=== PATIENT | male | born 1950 | race Caucasian/White ===

== ENCOUNTER → 2017-01-10 | Outpatient (CLI) | payer MEDICARE, BC ==
[~2017-01-10] MED LIST: ADVIL200 M2 PO; AMLODIPINE-BENA1 CAP PO; ASPIRIN PO; ASPIRIN81 M2 PO; ASPIRINEC PO; ATORVASTATIN CA80 MG PO; CIPRO PO; CRESTOR PO; DEPO-TESTOT200 MG/ML IM; FLOMAX0.4 M1 PO; LEXAPRO PO; LIPITOR PO; LOTREL 2.5/10 M1 CAP; METHADONE PO; METHADOSE5 MG PO; METOPROLOL SUCC50 MG PO; MOBIC PO; NEURONTIN300 MG PO; NITROGLYCERIN0.4 MG SL; PERCOCET10 PO; PERCOLONE5 MG; ROXICODONE5 MG PO; SERTRALINE HCL50 M1 PO; TESTOSTERO200 MG/1 M IM; VIT E PO; WALGREENS PHARMACY; ZOCOR PO; ZOCOR20 MG PO; [UNRECOGNIZED DRUG - OTHER]
--- NOTE | ~2017-01-10 | CT4 ---
[facility] A Service of [facility] & [facility] RADIOLOGY TEXT RESULTS PATIENT: PORTILLO MENCHACA LOCATION: [facility] : 52 UNIT #: [id number] AGE: [address]: Nazario London MD SEX: M ORDER DR: [id number] [facility] [address]. [place], [place] [address] [id number] O MR#: [id number] [facility] #: [id number] NAME: PORTILLO MENCHACA. : 1950 SEX: M STUDY DATE/TIME: 01/10/2017 15:06 UNIT: [facility] ROOM: STUDY DESCRIPTION: CT Abd and Pelv Wo Cont Attending Physician: Nazario London M.D. Referring Physician: Nazario London M.D. Ordering Physician: Nazario London M.D. Primary Care Physician: Gonzalo Herrera M.D. MEDICAL IMAGING REPORT This report is preliminary unless electronic signature is present EXAM CT of the abdomen and pelvis without contrast. INDICATIONS Left ureteral stone identified on a prior CT from March 05, 2016. Patient does have a history of multiple bilateral nonobstructing stones. TECHNIQUE Axial CT images were obtained from dome of the diaphragm through the symphysis pubis. No oral or intravenous contrast material was administered. This CT exam was performed with one or more of the following radiation dose reduction techniques: automatic exposure control, adjustment of mA and/or kV according to patient size, and iterative reconstruction. FINDINGS Images through the lung bases are clear. This patient is again noted to have a stone within the distal left ureter. It measures about 7 mm in size, which is somewhat similar when compared to the prior examination, although, there is no obstruction associated with it on today's examination. Bilateral nonobstructing renal stones are again noted, single largest stone on the right measures up to 1.1 cm, and the single largest on the left measures about 4 mm. Bilateral renal cysts are present. No stones are seen within the urinary bladder and is relatively decompressed. Prostate gland appears within normal limits. Liver and gallbladder appear unremarkable as are the stomach, proximal small bowel, adrenal glands, spleen and pancreas. No free fluid or adenopathy is seen within the abdomen. There is some atherosclerotic involvement of the abdominal aorta. There is colonic diverticulosis without evidence of diverticulitis. No free fluid or adenopathy is seen within the pelvis. This patient has some sclerotic foci identified within the pelvis. The single largest is seen within the sacrum and measures up to 9 mm in size. [facility] A Service of [facility] RADIOLOGY TEXT RESULTS PATIENT: PORTILLO MENCHACA LOCATION: [facility] : 52 UNIT #: [id number] AGE: [address]: Nazario London MD SEX: M ORDER DR: It is stable when compared to February 2016, but has increased in size when compared to November of 2010. There are additional scattered sclerotic foci seen within the pelvis which were also not present on the November of 2010 exam. While these still could reflect a benign finding, the possibly of sclerotic metastases certainly cannot be excluded, and correlation with PSA is recommended. IMPRESSION 1. Patient is again noted to have a 7 mm stone within the left ureter. This was also present on a prior study but is no longer associated with any hydronephrosis. 2. Bilateral nonobstructing stones are seen within both kidneys. 3. Bilateral renal cysts. 4. This patient has sclerotic foci seen throughout the pelvis, some of which were not present in 2010, and some of which have increased when compared to that examination. This still could reflect a benign finding, but the possibility of osseous metastatic disease cannot be excluded. Correlation with PSA is recommended. Dictated by... Idalmis Cornell M.D. THIS IS AN ELECTRONICALLY VERIFIED REPORT Idalmis Cornell M.D. at 01/12/2017 7:19 AM RETA/chapin TD: 01/11/2017 17:17 JOB #: [id number] MEDICAL IMAGING REPORT Page 1 of 1 COPY
== END | disposition home or self-care (01) ==
LOC: CCAT 14:16
DX: N20.2 Calculus of kidney with calculus of ureter (principal); Q61.02 Congenital multiple renal cysts
CPT/HCPCS: 74176

== ENCOUNTER → 2017-02-02 | Day surgery (SDC) | payer MEDICARE, BC ==
--- NOTE | ~2017-02-02 | EKG ---
PATIENT: PORTILLO MENCHACA UNIT #: [id number] Ventricular Rate: 51 BPM Atrial Rate: 51 BPM P-R Interval: 174 ms QRS Duration: 92 ms Q-T Interval: 436 ms QTC Calculation(Bezet): 401 ms P [place]: 24 degrees Calculated R [place]: 22 degrees Calculated T [place]: 46 degrees Diagnosis Line: Sinus bradycardia Diagnosis Line: Otherwise normal ECG Diagnosis Line: No previous ECGs available Diagnosis Line: Confirmed by LENCHO SAMANO MD ([id number]) on 02/04/2017 Diagnosis Line: 2:46:38 PM INTERPRETING MD: SELWYN ROJAS
--- NOTE | ~2017-02-02 | OR ---
Unit #: [id number] #: [id number] Patient: PORTILLO MENCHACA [id number] [address] [place], [place] [address] [id number] O MR#: [id number] NAME: PORTILLO MENCHACA ROOM: Date of Procedure: 02/02/2017 Admission Date: 02/02/2017 Surgeon: Nazario London M.D. : 1950 Attending Physician: Nazario London M.D. Primary Care Physician: Gonzalo Herrera M.D. OPERATIVE REPORT PREOPERATIVE DIAGNOSES Left ureteral and renal calculi, history of ureteral stricture. POSTOPERATIVE DIAGNOSES Left ureteral and renal calculi, history of ureteral stricture, with left ureteral stricture. PROCEDURES PERFORMED Cystoscopy, left rigid and flexible ureteroscopy, laser of ureteral stone, basket extraction of multiple renal stones, placement of internal double-J stent 28 x 5. ANESTHESIA General with local supplementation. INDICATIONS FOR PROCEDURE This 66-year-old man with chronic pain issues and chronic bilateral stones, has a 7 mm stone stuck in the mid left ureter in the area of a known stricture and a 4 mm left intrarenal stone as well as smaller stones by CT. He presents for left ureteroscopy, understanding that he will require a stent after the procedure. DESCRIPTION OF PROCEDURE The patient was given satisfactory general anesthesia and Levaquin. He was positioned in dorsal lithotomy. The genitalia prepped and draped. The 21-[place]er rigid cystoscope was introduced noting normal urethra, mild elevation of bladder neck from BPH, and a normal bladder with symmetric orifices, although there was a synechium at the distal left ureteral orifice which prompted a retrograde to clarify no duplication. I squirted some contrast up the ureter showing a normal delicate system dilation at the level of the stone and was able to then see guidewire in the more proximal portion after passing a Sensor guidewire up to the kidney. Lubriglides 8 and 10 were used to dilate over the guidewire. The rigid ureteroscope was then placed over a second guidewire and did not advance easily, so I dilated to 10-[place]er over the second wire, then advanced it up to where the stone was deeply impacted in a chronically inflamed segment at the pelvic brim level. The angle was adequate to treat the stone with a 200 nanometer laser fiber at settings of 10 and 1.0. This broken into numerous fragments that were irrigated out distally as I was able to advance the scope through the stricture to treat the remainder of the stone. I could not treat all of it with the rigid scope and elected Unit #: [id number] #: [id number] Patient: PORTILLO MENCHACA to place a flexible ureteroscope. I irrigated out fragments distally with the rigid scope before switching over, then placed the flexible scope over a second guidewire through the area of stricture. This allowed me to manipulate and back flush fragments out of this area for subsequent extraction. Removing the scope, I advanced a 13 x 11 access sheath over a solitary guidewire to beyond the stricture and through it, I used the flexible scope again to basket numerous fragments out of the upper ureter, then several fragments out of the kidney including what I believe are 2 pieces together making the perceived 4 mm stone. No laser was required in the kidney, but an extensive effort at basketing several stones resulted in clearance of any significant stones from the kidney. Final inspection of the stricture indicated he would benefit from prolonged stenting. A 28 x 5 double-J stent was deployed internally in good position. The bladder was drained. The cystoscope removed and a Uro-jet applied to complete the procedure. We will discuss with him retaining the stent for several weeks and possibly coordinating its removal with right ESWL and stent placement should he choose to treat his chronic stone on the other side at this time. Dictated by... Miriam Velásquez/mazin TD: 02/03/2017 07:15 JOB #: [id number] CC: Gonzalo Herrera M.D. OPERATIVE REPORT Page 1 of 1 X Nazario London MD PROCEDURE OPERATIVE NOTE
== END | disposition home or self-care (01) ==
LOC: CSUR 06:50
PROVIDERS: Urology
DX: N20.2 Calculus of kidney with calculus of ureter (principal); N40.0 Benign prostatic hyperplasia without lower urinary tract symptoms; K21.9 Gastro-esophageal reflux disease without esophagitis; I25.10 Atherosclerotic heart disease of native coronary artery without angina pectoris; I10 Essential (primary) hypertension; E78.5 Hyperlipidemia, unspecified; Z88.1 Allergy status to other antibiotic agents; Z79.82 Long term (current) use of aspirin; Z79.891 Long term (current) use of opiate analgesic; Z79.899 Other long term (current) drug therapy; Z98.890 Other specified postprocedural states
CPT/HCPCS: 82365; 88300; 93005; C1758; C2617; J1885; J1956; J2250; J2405; J3010

== ENCOUNTER 2017-02-17 05:54 | Emergency (ER) | payer MEDICARE, BC ==
[~2017-02-17] VITALS: Ht 182.9 cm; Wt 95.2 kg
--- NOTE | ~2017-02-17 | CR7 ---
[facility] A Service of [facility] RADIOLOGY TEXT RESULTS PATIENT: PORTILLO MENCHACA LOCATION: [facility] : 51 UNIT #: [id number] AGE: [address]: Nazario Aleman MD SEX: M ORDER DR: [id number] [facility] [address] [place], [place] [address] [id number] E MR#: [id number] Acc #: [id number] NAME: PORTILLO MENCHACA. : 1950 SEX: M STUDY DATE/TIME: 02/17/2017 6:40 UNIT: [facility] ROOM: STUDY DESCRIPTION: CR Abdomen Single AP View Attending Physician: Nazario Aleman M.D. Ordering Physician: Nazario Aleman M.D. Primary Care Physician: Gonzalo Herrera M.D. MEDICAL IMAGING REPORT This report is preliminary unless electronic signature is present EXAM Abdomen 02/17/2017 INDICATION Right-sided flank pain for a few days. History of stones and the patient had lithotripsy yesterday. COMPARISON 06/03/2014. There is also a CT scan of the abdomen and pelvis 01/10/2007. FINDINGS A supine view was obtained. There are postop changes of the lumbar spine at L4 and L5. There are phleboliths in the pelvis. The CT scan 01/10/2017 showed a right renal stone and left renal stone and a left ureteral stone but it is difficult to see those on this examination. The bowel gas pattern is normal. IMPRESSION 1. The bowel gas pattern is normal. 2. The single bilateral renal stones and the left ureteral stone that were seen on the CT scan 01/10/2017 are not appreciated on this plain film. Dictated by... Thien Chavez M.D. THIS IS AN ELECTRONICALLY VERIFIED REPORT Thien Chavez M.D. at 02/19/2017 6:15 AM SONDRA/faby TD: 02/18/2017 09:24 JOB #: [id number] [facility] A Service of [facility] RADIOLOGY TEXT RESULTS PATIENT: PORTILLO MENCHACA LOCATION: [facility] #: [id number] : 52 UNIT #: [id number] AGE: [address]: Nazario Almean MD SEX: M ORDER DR: MEDICAL IMAGING REPORT Page 1 of 1 COPY
[~2017-02-17 05:54] MED LIST changes: -ADVIL200 M2 PO; -CIPRO PO; -FLOMAX0.4 M1 PO; -ROXICODONE5 MG PO
[2017-02-17 07:05] LABS: BASOPHIL# 0.1 X10e3 (0-0.3); BASOPHIL% 0.8 % (0-2.5); EOSINOPHIL# 0.1 X10e3 (0-0.7); EOSINOPHIL% 0.8 % (0.0-7.0); HEMATOCRIT 43.5 % (38.0-50.0); HEMOGLOBIN 14.1 gm/dL (13.0-16.0); LYMPHOCYTE# 2.2 X10e3 (1.0-3.5); LYMPHOCYTE% 14.8 % (17.0-45.0); MEAN CELL VOLUME 85.5 FL (83-96); MEAN CORPUSCULAR HEMOGLOBIN 27.6 PG (28-34); MEAN CORPUSCULAR HGB CONC 32.3 g/dL (30-36); MEAN PLATELET VOLUME 9.5 FL (6.5-11.5); MONOCYTE# 1.2 X10e3 (0-1.0); MONOCYTE% 8.2 % (3.0-12.0); NEUTROPHIL% 75.4 % (40-75); PLATELET COUNT 154 X10e3 (140-420); RED BLOOD COUNT 5.09 X10e (3.90-5.60); RED CELL DISTRIBUTION WIDTH 13.6 % (11.0-15.5); WHITE BLOOD COUNT 14.6 X10e3 (4.0-10.5)
[2017-02-17 07:10] LABS: DIFF IND NO
[2017-02-17 07:27] LABS: BUN/CREATININE RATIO 12.66; CALCIUM SERUM 9.1 mg/dL (8.4-10.2); CREATININE SERUM 1.5 mg/dL (0.6-1.4); GLOM FILT RATE Estimated 48.2 mL/min (>60)
[2017-02-17 08:37] LABS: URINE SOURCE CLEAN CATCH
[2017-02-17 08:44] LABS: URINE APPEARANCE CLOUDY; URINE BILIRUBIN NEG (NEG); URINE BLOOD 3+ (NEG); URINE COLOR YELLOW; URINE GLUCOSE NEG (NEG); URINE KETONE NEG (NEG); URINE LEUKOCYTE ESTERASE 1+ (NEG); URINE NITRATE NEG (NEG); URINE PROTEIN 1+ (NEG); URINE SPECIFIC GRAVITY 1.012 (1.003-1.035); URINE UROBILINOGEN 0.2 MG/DL (NEG)
[2017-02-17 08:46] LABS: CULTURE INDICATED? YES; URBCS1 AUWI INNUM /[HPF] (0-2); URINE BACTERIA AUWI NEG (NEGATIVE); URINE SQUAMOUS EPITHELIAL CELL NONE SEEN /[HPF]
== END 2017-02-17 10:55 | disposition home or self-care (01) ==
LOC: CED 05:54
PROVIDERS: Emergency Medicine
DX: N20.1 Calculus of ureter (principal); Z79.82 Long term (current) use of aspirin; Z79.899 Other long term (current) drug therapy
CPT/HCPCS: 36415; 74000; 80048; 81003; 85025; 87086; 96361; 96374; 96375; 96376; 99284; J1170; J1885; J2550

== ENCOUNTER 2017-02-21 18:36 | Inpatient (IN) | payer MEDICARE, BC ==
[~2017-02-21] VITALS: Ht 182.9 cm; Wt 95.2 kg
--- NOTE | ~2017-02-21 | OR ---
Unit #: [id number] #: [id number] Patient: PORTILLO MENCHACA [id number] [address] [place], [place] [address] [id number] Jackie MR#: [id number] NAME: PORTILLO MENCHACA ROOM: 240 Date of Procedure: 02/22/2017 Admission Date: 02/21/2017 Surgeon: Nazario London M.D. : 1950 Attending Physician: Marii Chirinos M.D. Primary Care Physician: Gonzalo Herrera M.D. PROCEDURE OPERATIVE NOTE PREOPERATIVE DIAGNOSIS Right ureteral steinstrasse. POSTOPERATIVE DIAGNOSIS Same. PROCEDURE Cystoscopy, right rigid and flexible ureteroscopy with extensive basket extraction of numerous stone fragments, ureter and kidney. SURGEON Dr. Nazario London ANESTHESIA General. INDICATIONS This 66-year-old man has had continued pain since his lithotripsy one week ago and has been passing small stone fragments. With a negative KUB, he was observed further but CT scan on admission through the emergency department shows a massive stone 6 x 18 mm in the distal right ureter as well as some residual renal stones. This appears to be overlying the edge of the bony pelvis thus escaping previous detection. He elects definitive treatment as pain control has been difficult, especially given his baseline chronic pain with pain management. PROCEDURE The patient was on antibiotics and given satisfactory general anesthesia. In the dorsal lithotomy position, routine prep and drape were performed. The 21 Hungarian rigid cystoscope was introduced with the 30 degree lens and video. The left ureteral orifice still has moderate dilation and mild periorificial submucosal erythema from the previous stent on that side. The right ureteral orifice appeared normal. A Sensor guidewire was passed with the aide of a Pollack catheter through the massive stone. The ureter appeared possibly large enough to perform ureteroscopy without dilation and I was able to pass the ureteroscope. There was some red, heaped up mucosa in the very distal ureteral tunnel associated with the lead stone fragment which was very sharp and irregular. I was able to push the stone past this, however, and with several passages was able to simply irrigate out a number of fragments. Several required careful positioning and basket extraction but laser and dilation were not needed. Once I cleared the distal ureter, I placed an 11 x 13 short access sheath effortlessly Unit #: [id number] #: [id number] Patient: PORTILLO MENCHACA along the solitary guidewire and performed flexible ureteroscopy. As expected, I found 2 stones, each of which was easily basket extracted leaving no significant residual stone in the kidney. Final inspection allowed me to rule against placing a stent and thus, after washing fragments out with the cystoscope, the bladder was drained, the cystoscope removed and a Uro-jet applied to complete the procedure. Patient will be observed overnight for further improvement in his renal indices and if pain controlled, discharged with followup as scheduled. Dictated by... Miriam Velásquez/najma TD: 02/24/2017 14:05 JOB #: [id number] CC: Deja Rios M.D. PROCEDURE OPERATIVE NOTE Page 1 of 1 X Nazario London MD X PROCEDURE OPERATIVE NOTE
--- NOTE | ~2017-02-21 | CT4 ---
[facility] A Service of [facility] & [facility] RADIOLOGY TEXT RESULTS PATIENT: PORTILLO MENCHACA LOCATION: [facility] : 51 UNIT #: [id number] AGE: [address]: Marii Chirinos MD SEX: M ORDER DR: [id number] [facility] [address] [place], [place] [address] [id number] I MR#: [id number] Acc #: [id number] NAME: PORTILLO MENCHACA. : 1950 SEX: M STUDY DATE/TIME: 02/21/2017 20:02 UNIT: [facility] ROOM: [id number] STUDY DESCRIPTION: CT Abd and Pelv Wo Cont Attending Physician: Deja Rios M.D. Ordering Physician: Radha Grewal M.D. Primary Care Physician: Gonzalo Herrera M.D. MEDICAL IMAGING REPORT This report is preliminary unless electronic signature is present EXAM CT abdomen and pelvis without contrast DATE: 02/21/2017 at 20:02 HISTORY 66-year-old male with left flank pain, lower back pain status post lithotripsy procedure on 02/16/2017. COMPARISON CT abdomen and pelvis without contrast 01/10/2017. PROCEDURE 3 mL noncontrast axial images through the abdomen and pelvis. Enteric contrast was not administered. Sagittal and coronal reformatted images were obtained. This CT exam was performed with one or more of the following radiation dose reduction techniques: automatic exposure control, adjustment of mA and/or kV according to patient size, and iterative reconstruction. FINDINGS ABDOMEN FINDINGS: A stone or multiple stones are seen within the distal right ureter extending into the [id number] junction, extending nearly 1.8 cm in length, with maximal thickness of 6 mm. It is a new finding since 01/10/2017. There is mild bilateral hydroureter. However, no left ureteral stone is seen. There are nonobstructing bilateral intrarenal calculi and mild bilateral hydronephrosis. Bilateral renal cysts are present, the largest located in the right kidney measuring nearly 8 cm. Left kidney appears mildly atrophic. [facility] A Service of [facility] & [facility] RADIOLOGY TEXT RESULTS PATIENT: PORTILLO MENCHACA LOCATION: [place] [address] : [birth year] UNIT #: [id number] AGE: [address]: Marii Chirinos MD SEX: M ORDER DR: Lung bases are free of consolidation. There is minimal linear scarring in the right base.. Moderate coronary artery calcifications are present. The liver, gallbladder, spleen, pancreas and adrenal glands are within normal limits. Appendix is normal. Bowel appears nonthickened and noninflamed. PELVIS FINDINGS: Urinary bladder and prostate gland appear within normal limits. Rectum is normal. Posterior spinal fusion changes are present at L4-5. No acute osseous abnormalities are identified. IMPRESSION 1. New stone or stone aggregates within the distal right ureter at the ureterovesical junction measuring 6 mm in thickness x 1.8 cm in length. 2. No left ureteral stone is seen. 3. Mild bilateral hydronephrosis and hydroureter. 4. Nonobstructing bilateral renal stones and bilateral renal cysts. 5. Normal appendix. 6. Posterior lumbar spine fusion. Dictated by... Jeanna Anaya M.D. THIS IS AN ELECTRONICALLY VERIFIED REPORT Jeanna Anaya M.D. at 02/22/2017 12:28 PM MELA/selina TD: 02/21/2017 23:11 JOB #: [id number] MEDICAL IMAGING REPORT Page 1 of 1 COPY
--- NOTE | ~2017-02-21 | DS ---
Unit #: [id number] #: [id number] Patient: PORTILLO MENCHACA [id number] [address] [address] [id number] MR#: [id number] NAME: PORTILLO MENCHACA ROOM: 47 Age: 66 Sex: M Admission Date: 02/21/2017 : 1950 Discharge Date: 02/25/2017 Attending Physician: Marii Chirinos M.D. Primary Care Physician: Gonzalo Herrera M.D. DISCHARGE SUMMARY ADDENDUM Please note patient is still having significant amount of pain this afternoon; however, he has been up ambulating and walking the harding. I am going to give him a single dose of Toradol in addition to prescribing him a few oxycodone 5 mg 1 to 2 tablets p.o. q.4 hours p.r.n. for pain and allow him to be discharged home. Number of oxycodone given 12. Dictated by... Marii Chirinos M.D. KATE/jose TD: 02/26/2017 15:55 JOB #: [id number] DISCHARGE SUMMARY Page 1 of 1 X Marii Chirinos MD X DISCHARGE SUMMARY
--- NOTE | ~2017-02-21 | CT4 ---
[facility] A Service of [facility] & [facility] RADIOLOGY TEXT RESULTS PATIENT: PORTILLO MENCHACA LOCATION: [place] [address]- : [birth year] UNIT #: [id number] AGE: [address]: Marii Chirinos MD SEX: M ORDER DR: [id number] [facility] [address]. [place], [place] [address] [id number] I MR#: [id number] Acc #: [id number] NAME: PORTILLO MENCHACA. : 1950 SEX: M STUDY DATE/TIME: 02/24/2017 12:50 UNIT: [facility] ROOM: [facility] STUDY DESCRIPTION: CT Abd and Pelv Wo Cont Attending Physician: Marii Chirinos M.D. Ordering Physician: Marii Chirinos M.D. Primary Care Physician: Gonzalo Herrera M.D. MEDICAL IMAGING REPORT This report is preliminary unless electronic signature is present EXAM CT scan of the abdomen and pelvis without contrast, 02/24/2017. HISTORY Right flank pain for 2 weeks. Passed a kidney stone and underwent lithotripsy 1 week ago. TECHNIQUE Spiral CT was performed through the abdomen and pelvis without oral or intravenous contrast administration using renal stone protocol. This CT exam was performed with one or more of the following radiation dose reduction techniques: automatic exposure control, adjustment of mA and/or kV according to patient size, and iterative reconstruction. FINDINGS There is mild right hydronephrosis and hydroureter but no obstructing renal or ureteral calculus is seen. Findings may reflect a recently passed stone, but no calculus is seen within the bladder. Clinical correlation is recommended. They are multiple nonobstructing renal stones bilaterally. The left kidney appears somewhat atrophic. Compared with 02/21/2017, the indeterminate low-density lesions on both kidneys are stable and they probably represent cysts although they are indeterminate due to the lack of intravenous contrast. The visualized liver, spleen, pancreas, gallbladder and biliary tree and adrenal glands are normal. PELVIS FINDINGS: There is colonic diverticulosis without evidence of diverticulitis. The gut is otherwise unremarkable. No adenopathy is seen and there is no free fluid in the abdomen or pelvis. There is gas within the bladder lumen probably reflecting recent instrumentation. Clinical correlation recommended. IMPRESSION 1. Mild right-sided hydronephrosis and hydroureter but no obstructing STS. [facility] A Service of [facility] & [facility] RADIOLOGY TEXT RESULTS PATIENT: PORTILLO MENCHACA LOCATION: [place] [address] : [birth year] UNIT #: [id number] AGE: [address]: Marii Chirinos MD SEX: M ORDER DR: renal or ureteral calculus is seen. Findings may reflect recently passed stone, but no calculus is identified within the bladder. Clinical correlation is recommended. 2. Multiple nonobstructing renal stones bilaterally. The left kidney is atrophic. 3. Stable low-density lesions on both kidneys compared with 02/21/2017, probably representing cysts. 4. Gas is seen within the bladder is well as the right renal collecting system probably reflecting recent instrumentation. 5. Diverticulosis. No evidence of diverticulitis. 6. Posterior lumbar spine fusion is incidentally noted. Dictated by... Yossi Valenzuela M.D. THIS IS AN ELECTRONICALLY VERIFIED REPORT Yossi Valenzuela M.D. at 02/25/2017 6:33 AM ROSEMARY/chapin TD: 02/24/2017 23:59 JOB #: [id number] MEDICAL IMAGING REPORT Page 1 of 1 COPY
--- NOTE | ~2017-02-21 | DS ---
Unit #: [id number] #: [id number] Patient: PROTILLO MENCHACA [id number] [address] [place], [place] [address] [id number] I MR#: [id number] NAME: PORTILLO MENCHACA. ROOM: 476 Age: 66 Sex: M Admission Date: 02/21/2017 : 1950 Discharge Date: 02/23/2017 Attending Physician: Marii Chirinos M.D. Primary Care Physician: Gonzalo Herrera M.D. DISCHARGE SUMMARY PRINCIPAL DIAGNOSES 1. Severe right renal colic secondary to right ureterovesical junction stones status post right rigid and flexible ureteroscopy with basket multiple stone fragments extracted. 2. Acute kidney injury, prerenal plus/minus obstructive. Discharge creatinine 1.5. 3. Chronic pain syndrome, maintained on long-term methadone. 4. Coronary artery disease. 5. Hypertension. 6. Hypotestosteronism. 7. Hyperlipidemia. CONSULTANTS Dr. London, urology. PROCEDURES Again, right flexible and rigid ureteroscopy with extraction of multiple stone. DIAGNOSTIC STUDIES IMAGING: CT scan of the abdomen and pelvis without contrast on February 21, 2017 with new stone aggregates in the distal right ureter at the ureterovesical junction measuring 6 mm in thickness x 1.8 cm in length. No left ureteral stone noted. CLINICAL HISTORY AND HOSPITAL COURSE Mr. Pacheco is a nice 66-year-old male who presented to the emergency department with right-sided flank pain. He had recently undergone lithotripsy at [facility] and was passing stones at home, and he developed significant amount of pain. CT scan in the emergency department revealed above, and the patient was subsequently admitted. Secondary to patient's UVJ stones, urology was consulted. Patient underwent ureteroscopy with stone extraction. He is still having a significant amount of pain, and we are going to monitor pain throughout the day. He is not having any evidence of hematuria. Upon presentation patient's creatinine was as high as 3.3, up from a baseline of 1.1 in 2016. Creatinine on February 17 of this year was also 1.5. He was placed on IV fluids. Nephrotoxic medications were discontinue, and again, he had stone extraction. At time of dictation, creatinine has now returned to 1.5, and I anticipate it will return to normal with approximately hydration at home Unit #: [id number] #: [id number] Patient: PORTILLO MENCHACA Patient's other chronic conditions remained stable. Assuming pain is better controlled throughout the day, he can be discharged home later today. DISCHARGE CONDITION Stable. DISCHARGE STATUS Discharge to home. DISCHARGE MEDICATIONS 1. Flomax 0.4 mg daily. 2. Depo-Testosterone 200 mg IM twice monthly. 3. Zoloft 50 mg at bedtime. 4. Atorvastatin 80 mg at bedtime. 5. Metoprolol succinate 50 mg at bedtime. 6. Aspirin 81 mg daily. 7. Methadone 5 mg 4 times daily. 8. Percocet 10/325 one tablet 3 times daily. 9. Nitro 0.4 mg sublingual q.5 minutes p.r.n. for chest pain. 10. Ciprofloxacin 500 mg p.o. b.i.d. for 10 days. DISCHARGE INSTRUCTIONS Patient instructed to follow a heart healthy diet. He can increase his activity as tolerated. FOLLOW-UP Patient will follow up with Dr. London in 1 month with an renal ultrasound Dictated by... Marii Chirinos M.D. KATE/jose TD: 02/26/2017 12:50 JOB #: [id number] DISCHARGE SUMMARY Page 1 of 1 X Marii Chirinos MD X DISCHARGE SUMMARY
--- NOTE | ~2017-02-21 | DS ---
Unit #: [id number] #: [id number] Patient: PORTILLO MENCHACA [id number] [address] [place], [place] [address] [id number] I MR#: [id number] NAME: PORTILLO MENCHACA. ROOM: 476 Age: 66 Sex: M Admission Date: 02/21/2017 : 1950 Discharge Date: 02/25/2017 Attending Physician: Marii Chirinos M.D. Primary Care Physician: Gonzalo Herrera M.D. DISCHARGE SUMMARY ADDENDUM HOSPITAL COURSE Patient remained in the hospital due to intractable pain. He has continued to have significant renal colic. Once creatinine improved we placed him on Toradol, and his pain is also now significantly improved. A repeat CT scan of the abdomen and pelvis revealed mild right-sided hydronephrosis, some mild right-sided hydroureter but no retained stones. He was seen in consultation by Dr. Luis, the covering urologist, who recommended to simply continue anti-inflammatory and pain control, and today patient feels much better. He will be discharged home on medications as previously dictated with the addition of ibuprofen 200 mg 3 tablets p.o. q.8 hours p.r.n. for pain. Please note his Cipro has been decreased to 16 tablets rather than 20 given his continued hospitalization, and Flomax will be given as previously dictated. Dictated by... Marii Chirinos M.D. KATE/jose TD: 02/26/2017 20:25 JOB #: [id number] DISCHARGE SUMMARY Page 1 of 1 X Marii Chirinos MD DISCHARGE SUMMARY
--- NOTE | ~2017-02-21 | CO ---
Unit #: [id number] #: [id number] Patient: PORTILLO MENCHACA [id number] [address] [place], [place] [address] [id number] I MR#: [id number] NAME: PORTILLO MENCHACA. ROOM: 240 Age: 66 Sex: M Admission Date: 02/21/2017 : 1950 Attending Physician: Marii Chirinos M.D. Primary Care Physician: Gonzalo Herrera M.D. CONSULTATION REPORT REASON FOR CONSULTATION Right renal colic, acute kidney injury. HISTORY This patient, well known to me, had treatment for a left ureteral stone on emergency basis January 10 with indwelling stent until elective treatment of his contralateral nonobstructing right renal stone on 02/16 at [facility]. At that time his left stent was removed and he elected to not have stent replacement unless very strongly indicated. As there was a complete fluoroscopic result, a stent was not placed. He has had difficulties since that time, but also passed numerous small fragments. I saw him in the office two days ago and determined that a KUB was entirely negative so he was to continue medical expulsive therapy. He was supplied additional Percocet 10 to be taken cautiously given his chronic pain situation. He returned to the emergency department with nausea, vomiting and worsening flank pain and was noted to have creatinine increased to 3.[address] scan shows right hydronephrosis, a 6 x 18 mm calcific mass in the distal ureter consistent with steinstrasse, and left side is entirely clear. There are residual calcifications in the right kidney. PAST MEDICAL HISTORY Hypertension, chronic low back pain, coronary artery disease, BPH, hyperlipidemia, low testosterone. SURGERIES Multiple back surgeries, multiple stone surgeries, oral surgery. MEDICATIONS ON ADMISSION Toprol, Zoloft, Percocet 10 t.i.d., methadone 5 q.i.d., Lipitor 80, testosterone injections. ALLERGIES Keflex. FAMILY HISTORY Kidney stones. SOCIAL HISTORY Nonsmoker, . REVIEW OF SYSTEMS Nausea, vomiting most pertinent. PHYSICAL EXAMINATION Unit #: [id number] #: [id number] Patient: PORTILLO MENCHACA GENERAL APPEARANCE: On examination, patient is lying in bed, medicated but alert. VITAL SIGNS: Afebrile with stable vital signs. Temperature 99.6 degrees, which is his maximum; pulse 67; blood pressure 146/69; respirations 18; height is 6 feet, 0 inches. HEENT: Unremarkable. ABDOMEN: Soft, nontender. DIAGNOSTIC STUDIES LABORATORY: Laboratories include urinalysis: Innumerable RBC and WBC, 1+ bacteria. BUN 20, creatinine 3. CMP unremarkable otherwise. WBC 10.7, hemoglobin 12.7. Urine culture has been sent and was final no growth from February 17. IMAGING: CT scan as above. IMPRESSION Right ureteral steinstrasse and remaining right stone fragments. PLAN We will schedule right ureteroscopy, laser lithotripsy, stent placement later today. Remain NPO. He has appropriately been started on Levaquin. Thank you Deja Rhodes for the consultation. Dictated by... Miriam Velásqeuz/boaz TD: 02/23/2017 06:42 JOB #: [id number] CC: Deja Rios M.D. CONSULTATION REPORT Page 1 of 1 X Nazario London MD CONSULTATION REPORT
--- NOTE | ~2017-02-21 | HP ---
Unit #: [id number] #: [id number] Patient: PORTILLO MENCHACA [id number] [address] [place], [place] [address] [id number] I MR#: [id number] NAME: PORTILLO MENCHACA. ROOM: 240 Age: 66 Sex: M Admission Date: 02/21/2017 : 1950 Attending Physician: Deja Rios M.D. Primary Care Physician: Gonzalo Herrera M.D. HISTORY AND PHYSICAL CHIEF COMPLAINT Right renal colic and acute kidney injury. HISTORY This pleasant, 66-year-old male with hypertension, CAD, chronic pain, kidney stones is admitted for acute kidney injury and right renal colic. Patient underwent ESWL at [facility] six days ago. Began to pass multiple tiny stones. However, began to experience increasing right low flank pain, which worsened today. The pain was severe today and was associated with nausea and vomiting. Patient also has had little p.o. intake over the past several days due to the pain. He presents to this emergency department tonight where a CT scan shows new stone or stone aggregates distal right ureter measuring 6 x 13 mm. He has required multiple doses of Dilaudid for pain. Also noted is acute kidney injury with a creatinine of 3.3, up from 1.5 several days ago. In the ER, he was also bolused with 2 liters of saline. Is still complaining of severe right low flank pain. Patient is in pain management on chronic pain medications. PAST MEDICAL HISTORY 1. Kidney stones requiring multiple procedures including stents, laser lithotripsy, and ESWL. 2. Essential hypertension. 3. Chronic low back pain. 4. CAD. 5. BPH. 6. Hyperlipidemia. 7. Low testosterone. 8. Multiple back surgeries. 9. Multiple lithotripsies. 10. Oral surgery. ALLERGIES Keflex causes severe nausea, vomiting, and diarrhea. HOME MEDICATIONS 1. Toprol 50 mg daily. 2. Zoloft 50 mg daily. 3. Percocet 10 t.i.d. 4. Methadone 5 mg q.i.d. 5. Lipitor 80 mg daily. 6. Testosterone injections. Unit #: [id number] #: [id number] Patient: PORTILLO MENCHACA FAMILY HISTORY Kidney stones. SOCIAL HISTORY The patient lives with his who is at bedside. He is a lifelong nonsmoker and drinks occasional alcohol. REVIEW OF SYSTEMS Notable for renal colic with nausea, vomiting, poor p.o. intake, kidney stones, hypertension, hyperlipidemia, chronic back pain, CAD, BPH, hyperlipidemia, and abovementioned surgeries. All other systems were reviewed and otherwise negative. PHYSICAL EXAMINATION GENERAL APPEARANCE: Uncomfortable appearing, 66-year-old male. VITAL SIGNS: Temperature 98.4, pulse 80, respirations 18, blood pressure 173/81, O2 saturation 98% on room air. HEENT: Eyes: PERRLA. Extraocular muscles are intact. Pharynx is benign. NECK: Supple without adenopathy or thyromegaly. CHEST: Clear. BACK: With percussion tenderness over the lower flank on the right. CARDIAC: Normal S1 and S2 without murmur. ABDOMEN: Bowels sounds are present. Mild right lower quadrant tenderness. No rebound, guarding. No hepatosplenomegaly or masses. EXTREMITIES: Without C, C, or E. Pedal pulses are present. NEUROLOGIC: Patient is awake, alert, and oriented. Cranial nerves are intact. Equal strength throughout. DIAGNOSTIC STUDIES ADMISSION LABS: Hematocrit is 40.6, white blood count is 11.6, normal platelet count. SMA-12: Glucose 151; creatinine 3.3, up from a creatinine of 1.5 four days ago. Lactic acid normal. Urinalysis: 3+ leukocyte esterase, 2+ blood, micro has not been completed yet. IMAGING: CT scan: New stone or stone aggregates, distal right ureter, with hydronephrosis bilaterally. ASSESSMENT 1. Right renal colic. 2. Acute kidney injury secondary to obstructing stone and dehydration. 3. Coronary artery disease. 4. Essential hypertension. 5. Hyperlipidemia. 6. Chronic pain. 7. Benign prostatic hypertrophy. PLANS 1. IV fluids and supportive treatment. 2. Urology consultation. 3. Antibiotics for now. 4. SCDs for DVT prophylaxis. 5. Flomax. 6. Check postvoid bladder scan. Dictated by Unit #: [id number] #: [id number] Patient: PORTILLO MENCHACA Miriam Murray/boaz TD: 02/22/2017 05:12 JOB #: [id number] CC: Tye Monique M.D. HISTORY AND PHYSICAL Page 1 of 1 X Deja Rios MD X HISTORY AND PHYSICAL
[2017-02-21 19:52] LABS: BASOPHIL# 0.1 X10e3 (0-0.3); BASOPHIL% 0.7 % (0-2.5); EOSINOPHIL# 0.1 X10e3 (0-0.7); EOSINOPHIL% 0.8 % (0.0-7.0); HEMATOCRIT 40.6 % (38.0-50.0); HEMOGLOBIN 13.6 gm/dL (13.0-16.0); LYMPHOCYTE# 1.3 X10e3 (1.0-3.5); LYMPHOCYTE% 11.4 % (17.0-45.0); MEAN CELL VOLUME 84.6 FL (83-96); MEAN CORPUSCULAR HEMOGLOBIN 28.3 PG (28-34); MEAN CORPUSCULAR HGB CONC 33.5 g/dL (30-36); MONOCYTE# 0.9 X10e3 (0-1.0); MONOCYTE% 7.6 % (3.0-12.0); NEUTROPHIL# 9.2 X10e3 (1.5-7.1); NEUTROPHIL% 79.5 % (40-75); PLATELET COUNT 167 X10e3 (140-420); RED CELL DISTRIBUTION WIDTH 13.7 % (11.0-15.5); WHITE BLOOD COUNT 11.5 X10e3 (4.0-10.5)
[2017-02-21 19:58] LABS: DIFF IND NO
[2017-02-21 20:08] LABS: ALBUMIN SERUM 3.9 g/dL (3.5-5.0); BILIRUBIN, DIRECT 0.2 mg/dL (0.0-0.2); BILIRUBIN,INDIRECT 1.3 mg/dL (0.0-0.9); BILIRUBIN,TOTAL 1.5 mg/dL (0.2-2.0); BUN/CREATININE RATIO 6.66; CALCIUM SERUM 9.3 mg/dL (8.4-10.2); CREATININE SERUM 3.3 mg/dL (0.6-1.4); GLOM FILT RATE Estimated 18.6 mL/min (>60); POTASSIUM 4.3 mmol/L (3.5-5.1); PROTEIN TOTAL SERUM 7.8 g/dL (6.0-8.3)
[2017-02-21 20:10] LABS: URINE SOURCE CLEAN CATCH
[2017-02-21 20:22] LABS: URINE APPEARANCE CLEAR; URINE BILIRUBIN NEG (NEG); URINE BLOOD 2+ (NEG); URINE COLOR YELLOW; URINE GLUCOSE NEG (NEG); URINE KETONE NEG (NEG); URINE LEUKOCYTE ESTERASE 3+ (NEG); URINE NITRATE NEG (NEG); URINE PH 5.5 (5-8); URINE PROTEIN NEG (NEG); URINE SPECIFIC GRAVITY 1.007 (1.003-1.035); URINE UROBILINOGEN 0.2 MG/DL (NEG)
[2017-02-21 20:43] LABS: CULTURE INDICATED? NO
[2017-02-22 05:55] LABS: BASOPHIL# 0.1 X10e3 (0-0.3); BASOPHIL% 0.7 % (0-2.5); EOSINOPHIL# 0.1 X10e3 (0-0.7); EOSINOPHIL% 1.3 % (0.0-7.0); HEMATOCRIT 37.7 % (38.0-50.0); HEMOGLOBIN 12.7 gm/dL (13.0-16.0); LYMPHOCYTE% 18.3 % (17.0-45.0); MEAN CORPUSCULAR HEMOGLOBIN 28.6 PG (28-34); MEAN CORPUSCULAR HGB CONC 33.6 g/dL (30-36); MEAN PLATELET VOLUME 9.1 FL (6.5-11.5); MONOCYTE% 8.9 % (3.0-12.0); NEUTROPHIL# 7.6 X10e3 (1.5-7.1); NEUTROPHIL% 70.8 % (40-75); PLATELET COUNT 151 X10e3 (140-420); RED BLOOD COUNT 4.44 X10e (3.90-5.60); RED CELL DISTRIBUTION WIDTH 13.6 % (11.0-15.5); WHITE BLOOD COUNT 10.7 X10e3 (4.0-10.5)
[2017-02-22 06:04] LABS: DIFF IND NO
[2017-02-22 06:42] LABS: BUN/CREATININE RATIO 6.66; CALCIUM SERUM 8.4 mg/dL (8.4-10.2); GLOM FILT RATE Estimated 20.8 mL/min (>60); POTASSIUM 4.7 mmol/L (3.5-5.1)
[2017-02-23 06:08] LABS: HEMATOCRIT 36.4 % (38.0-50.0); HEMOGLOBIN 12.1 gm/dL (13.0-16.0); MEAN CELL VOLUME 84.3 FL (83-96); MEAN CORPUSCULAR HGB CONC 33.2 g/dL (30-36); MEAN PLATELET VOLUME 8.5 FL (6.5-11.5); RED BLOOD COUNT 4.32 X10e (3.90-5.60); RED CELL DISTRIBUTION WIDTH 13.9 % (11.0-15.5)
[2017-02-23 06:56] LABS: BUN/CREATININE RATIO 7.33; CALCIUM SERUM 8.7 mg/dL (8.4-10.2); CREATININE SERUM 1.5 mg/dL (0.6-1.4); GLOM FILT RATE Estimated 48.2 mL/min (>60); POTASSIUM 4.4 mmol/L (3.5-5.1)
[2017-02-23] MEDS ORDERED: FLOMAX0.4 M1 PO (16:55)
[2017-02-23] MEDS ORDERED: CIPRO PO (16:55)
[2017-02-23] MEDS ORDERED: ROXICODONE5 MG PO (16:56)
[2017-02-24 06:40] LABS: BUN/CREATININE RATIO 8.46; CALCIUM SERUM 8.6 mg/dL (8.4-10.2); CREATININE SERUM 1.3 mg/dL (0.6-1.4); GLOM FILT RATE Estimated 57.3 mL/min (>60); POTASSIUM 4.6 mmol/L (3.5-5.1)
[2017-02-25 03:35] LABS: BUN/CREATININE RATIO 9.23; CALCIUM SERUM 8.6 mg/dL (8.4-10.2); CREATININE SERUM 1.3 mg/dL (0.6-1.4); GLOM FILT RATE Estimated 57.3 mL/min (>60); POTASSIUM 3.9 mmol/L (3.5-5.1)
[2017-02-25] MEDS ORDERED: ADVIL200 M2 PO (10:13)
== END 2017-02-25 10:50 | disposition home or self-care (01) | DRG 660 ==
LOC: CED 18:36 → CEDOF 23:00 → CED 23:05 → CEDOF 23:55 → C2A 23:55 → C4C 02-24 17:26
PROVIDERS: Emergency Medicine; Internal Medicine; Urology
PROC: 0TC68ZZ Extirpation of Matter from Right Ureter, Via Natural or Artificial Opening Endoscopic (ICD-10-PCS; 2017-02-22)
PROC: 0TC08ZZ Extirpation of Matter from Right Kidney, Via Natural or Artificial Opening Endoscopic (ICD-10-PCS; principal; 2017-02-22 13:00)
DX: N20.2 Calculus of kidney with calculus of ureter (principal); N17.9 Acute kidney failure, unspecified; I12.9 Hypertensive chronic kidney disease with stage 1 through stage 4 chronic kidney disease, or unspecified chronic kidney disease; I25.10 Atherosclerotic heart disease of native coronary artery without angina pectoris; Z87.442 Personal history of urinary calculi; N40.0 Benign prostatic hyperplasia without lower urinary tract symptoms; E78.5 Hyperlipidemia, unspecified; Z88.1 Allergy status to other antibiotic agents; E86.0 Dehydration; M54.5 Low back pain; N18.3 Chronic kidney disease, stage 3 (moderate); G89.4 Chronic pain syndrome
CPT/HCPCS: 36415; 74176; 80048; 80076; 81003; 82365; 83605; 85025; 85027; 96361; 96374; 96375; 96376; 99285; C1758; J1170; J1885; J1956; J2250; J2405; J3010

== ENCOUNTER → 2017-03-12 | Outpatient (CLI) | payer MEDICARE, BC ==
[~2017-03-12] MED LIST changes: +ADVIL200 M2 PO; +CIPRO PO; +FLOMAX0.4 M1 PO; +ROXICODONE5 MG PO
--- NOTE | ~2017-03-12 | CR7 ---
[facility] A Service of [facility] RADIOLOGY TEXT RESULTS PATIENT: PORTILLO MENCHACA LOCATION: [facility] : 52 UNIT #: [id number] AGE: [address]: Nazario London MD SEX: M ORDER DR: [id number] [place], [place] [address] [id number] MR#: [id number] Acc #: [id number] NAME: PORTILLO MENCHACA : 1950 SEX: M STUDY DATE/TIME: 03/12/2017 8:43 UNIT: [facility] ROOM: STUDY DESCRIPTION: CR Abdomen Single AP View Attending Physician: Nazario London M.D. Referring Physician: Nazario London M.D. Ordering Physician: Nazario London M.D. Primary Care Physician: Gonzalo Herrera M.D. MEDICAL IMAGING REPORT This report is preliminary unless electronic signature is present EXAM Abdomen single AP view 03/12/2017 HISTORY 66-year-old male patient with history of bilateral kidney stones [id number] weeks post-lithotripsy. Recent severe pain has since this subsided. COMPARISON Most recent non-contrast CT abdomen and pelvis, 02/24/2017. FINDINGS The KUB again demonstrates a number of oval calcific bodies in the pelvis consistent with bilateral multiple phleboliths. No definite ureteral calculus identified. No visible renal calculus noted on either side. Large upper pole right renal cyst partially imaged. Upper poles of both kidneys are only partially included on the KUB which does include the complete pelvis. Previous lumbar spine fusion and prosthetic disc placement noted L4-5 level. IMPRESSION No definite renal lithiasis or ureteral lithiasis identified. Multiple pelvic phleboliths noted. Prominent right upper pole renal cyst partially imaged. Dictated by... Sage Ashton M.D. THIS IS AN ELECTRONICALLY VERIFIED REPORT [facility] A Service of [facility] RADIOLOGY TEXT RESULTS PATIENT: PORTILLO MENCHACA LOCATION: [facility] #: [id number] : [birth year] UNIT #: [id number] AGE: [address]: Nazario London MD SEX: M ORDER DR: Sage Ashton M.D. at 03/13/2017 8:04 AM JBB/pcl TD: 03/12/2017 16:03 JOB #: [id number] MEDICAL IMAGING REPORT Page 1 of 1 COPY
== END | disposition home or self-care (01) ==
LOC: CRAD 08:29
DX: N20.0 Calculus of kidney (principal)
CPT/HCPCS: 74000